=== PATIENT | male | born 1985 | race Caucasian/White ===

== ENCOUNTER 2018-10-01 01:47 | Emergency (ER) | payer OTHER ==
[~2018-10-01] VITALS: Ht 182.9 cm; Wt 88.5 kg
[2018-10-01] MEDS ORDERED: GABA600T12 PO (02:02)
[2018-10-01] MEDS ORDERED: TRAZ-182 PO (02:02)
[2018-10-01] MEDS ORDERED: [UNRECOGNIZED DRUG - OTHER] (02:02)
[2018-10-01] MEDS ORDERED: COLC0.6C3 PO (02:02)
[2018-10-01] MEDS ORDERED: PROP20TA7 PO (02:02)
--- NOTE | 2018-10-01 02:08 | NUR ---
Dr. Gaxiola at bedside for MSE.
[2018-10-01] MEDS ORDERED: IBUPROFEN 800 MG TABLET PO ONE (02:15)
[2018-10-01] MEDS ORDERED: ALBUTEROL SULFATE 2.5 MG/3 ML NEBU NEB ONE (02:15)
[2018-10-01] MEDS ORDERED: ACETAMINOPHEN ES 500 MG TABLET PO ONE (02:15)
[2018-10-01] MEDS ORDERED: ACETAMINOPHEN ES 500 MG TABLET ONE (02:20)
[2018-10-01] MEDS ORDERED: IBUPROFEN 800 MG TABLET ONE (02:20)
[2018-10-01] MEDS ORDERED: ALBUTEROL SULFATE 2.5 MG/3 ML NEBU ONE (02:25)
--- NOTE | 2018-10-01 02:58 | NUR ---
Patient discharged to home in stable conditon. Written and verbal after care instructions given. Patient verbalizes understanding of instructions. Pt ambulated out of ER with steady gait, no acute signs of distress, VSS, all belongings taken.
[2018-10-01 02:59] VITALS: BP 112/58
== END 2018-10-01 03:04 | disposition home or self-care (01) ==
LOC: ER 01:47
DX: J32.9 Chronic sinusitis, unspecified (principal); R42 Dizziness and giddiness; F17.200 Nicotine dependence, unspecified, uncomplicated; Z79.899 Other long term (current) drug therapy
CPT/HCPCS: 36415; 86403; 87070; 87400; 93005; A4663; A9150